=== PATIENT | female | born 1995 | race Caucasian/White ===

== ENCOUNTER 2020-10-02 00:22 | Inpatient (IN) | payer OTHER ==
[~2020-10-02] VITALS: Ht 160 cm; Wt 103.0 kg
--- NOTE | 2020-10-02 00:59 | NUR ---
RAPID COVID TEST DONE PER DR ORDER. COVID TEST COLLECTED FROM BOTH NARES W/O ISSUE. PT TOLERATED WELL.
--- NOTE | 2020-10-02 04:28 | NUR ---
10/02/20 0428 Noelle Lowery 0407 PT ARRIVED IN PACU WIDE AWAKE WITH NO C/O'S. 0410 FBC RN AT BEDSIDE HELPING MOM BREASTFEED BABY. 0420 MOM WITH NO C/O'S.
--- NOTE | 2020-10-03 19:37 | PR ---
[facility] [address] [facility] [place], [place] [address] Signed PP Progress Notes Datetime Report Generated by CPN: 10/03/2020 19:37 SUBJECTIVE: [id number] Pain: Within Normal Limits Nausea/Vomiting: Denies Flatus: Yes Bowel Movement: No Vital Signs: [id number] Vital Signs: Reviewed; Within Normal Limits Cardiovascular: Normal Respiratory: Normal Abdomen/Uterus: Normal Extremities: Normal Incision: Normal IMPRESSION/PLAN/PROCEDURES: [id number] Impression: Normal Progression Plan: Continue Present Management Progress Notes: POD#1 s/p RLTCS after PROM/active labor Progressing well, denies complaints/concerns VSS Ambulating and tolerating regular diet Anticipate DC to home tomorrow Signing Physician: Jaimee Adan DO Copies: ~ *Electronically Signed* 10/03/201936 JAIMEE ADAN DO PATIENT NAME: MARLEEN GALVEZ PROGRESS NOTE DATE OF : [birth year] PHYSICIAN: JAIMEE ADAN DO RPT #: [id number] REPORT IS CONFIDENTIAL AND NOT TO BE RELEASED WITHOUT AUTHORIZATION
--- NOTE | 2020-10-04 07:50 | PR ---
[facility] [address] [facility] [place], [place] [address] Signed PP Progress Notes Datetime Report Generated by CPJ Carlos: 10/04/2020 07:50 SUBJECTIVE: [id number] Pain: Within Normal Limits Nausea/Vomiting: Denies Flatus: Yes Bowel Movement: No Vital Signs: [id number] Vital Signs: Reviewed; Within Normal Limits Cardiovascular: Normal Respiratory: Normal Abdomen/Uterus: Normal Lochia: Normal Extremities: Normal Incision: Normal Progress: Normal IMPRESSION/PLAN/PROCEDURES: [id number] Impression: Normal Progression Plan: Continue Present Management; Discharge Procedures: None Progress Notes: Pt is a 25 yo G2now P2002 POD#2 s/p RLTCS (spontaneous labor) -progressing well -one isolated episode of vertigo yesterday 30 min after percocet, resolved with meclizine and no further reoccurences -lochia light - without difficulty -ambulating, voiding, +flatus, no BM yet Anticipate DC to home today Signing Physician: Jaimee Adan DO Copies: ~ *Electronically Signed* 10/04/20 0750 JAIMEE AADN DO PATIENT NAME: MARLEEN GALVEZ PROGRESS NOTE DATE OF : 96 PHYSICIAN: JAIMEE ADAN #: [id number] REPORT IS CONFIDENTIAL AND NOT TO BE RELEASED WITHOUT AUTHORIZATION
--- NOTE | 2020-10-07 10:12 | OR ---
[facility] [address] [place] [address] Signed DATE OF OPERATION: 10/02/2020 SURGEON: Electronically Signed By: JAIMEE ADAN DO 10/07/20 1012 PATIENT NAME: MARLEEN GALVEZ OPERATIVE REPORT DATE OF : [birth year] REPORT #: [id number] PHYSICIAN: JAIMEE ADAN DO PCP: NO PRIMARY CARE PHYSICIAN REPORT IS CONFIDENTIAL AND NOT TO BE RELEASED WITHOUT AUTHORIZATION [place] [address] [place] [address] Signed Jaimee Adan DO [employer] MANAGER: JAMES Lizarraga DO PROCEDURE: Repeat low-transverse . ESTIMATED BLOOD LOSS: 600 mL. ANESTHESIA: Spinal. COMPLICATIONS: None. 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 Uterine window present, measuring 6 cm superiorly/inferiorly by 7 cm horizontally underneath the bladder with a thick margin of tissue palpable at the inferior margin, behind the bladder. Term viable female weighing 7 pounds 6 ounces delivered in right sacrum anterior position, in complete breech position, normal-appearing tubes and ovaries bilaterally. Left horn present, but notably smaller and less developed than the right horn. INDICATIONS: The patient is a 25-year-old G3, P1-0-1-1, who presented to [facility] after feeling her water break at home at 11:30 p.m. last night. She was previously scheduled for RLTCS on 10/08/20. She is faviola every 2-3 minutes and was consented for repeat . PROCEDURE IN DETAIL: The patient was taken to the operating room where she was given 2 g Ancef and 500 mg of azithromycin and spinal anesthesia was placed. She was prepped and draped in the normal sterile fashion and positioned in supine position with a leftward tilt. Prior Pfannenstiel scar was excised with a scalpel and incision carried down to the underlying fascia with Bovie cautery. The fascia was incised just lateral to midline with scalpel and extended laterally with Valero scissors. The inferior margin was grasped and elevated and the underlying rectus muscle was dissected off with blunt and sharp dissection with Valero scissors. This was released and the superior margin was grasped, elevated, and the Electronically Signed By: JAIMEE ADAN DO 10/07/20 1012 PATIENT NAME: MARLEEN GALVEZ OPERATIVE REPORT DATE OF : [birth year] REPORT #: [id number] PHYSICIAN: JAIMEE ADAN DO PCP: NO PRIMARY CARE PHYSICIAN REPORT IS CONFIDENTIAL AND NOT TO BE RELEASED WITHOUT AUTHORIZATION [address] [address] Signed underlying rectus muscle was dissected off with blunt and sharp dissection with Valero scissors. Peritoneum was easily visualized and entered bluntly and this incision was extended superiorly with Valero scissors and inferiorly with good visualization of the bladder, which was noted to be high. Karri retractor was placed, and at this point, uterine window was easily visible. Due to the location of the window underlying the bladder, incision was made above the vesicouterine junction and hysterotomy was extended laterally with gentle digital traction superiorly and inferiorly. The infant's hips and buttocks were delivered in the RSA position. The remainder of the baby, first right shoulder, then left shoulder, then head were easily delivered via normal breech maneuvers. Cord was immediately doubly clamped and cut and baby was handed off to the waiting nursery team. Cord blood was collected for type and Kirk. Placenta was manually expressed and the uterus was cleared of clots and debris. Hysterotomy was closed in a double-layer closure first with 0 Monocryl in a running locked fashion after securing the right apex and second layer with 0 Monocryl in an imbricating manner. Pelvis was suction irrigated. One area of oozing near midline was noted and [id number] suture with 0 Monocryl was placed with resulting hemostasis. ACell sheet was applied over the hysterotomy. Peritoneum was closed with 2-0 Vicryl in a running fashion. Rectus muscle was inspected for any perforating vessels, which were cauterized with Bovie cautery. The rectus was reapproximated at midline with 0 Vicryl in a simple interrupted fashion x3 sutures. Fascia was closed with 0 Vicryl in a running fashion, starting at the right apex working towards the midline and left apex towards the midline and meeting at the center. Subcutaneous layer was inspected for perforating vessels and these were cauterized with Bovie cautery. This was closed in two layers of closure, one deep with 3-0 vicryl in a running fashion and one more superficially with 3-0 monocryl in a running fashion. Skin was closed with 4-0 monocryl in a subcuticular fashion. Sponge and instrument counts were correct x 2. Sterile dressing was applied. Uterus was Crede'd, with minimal bleeding resulting. Cervix was noted to be dilated to 2 cm at this time. Mother and baby were taken to [facility] room for initial postoperative stabilization. Jaimee Adan DO EMZ/MODL /[id number] Electronically Signed By: JAIMEE ADAN DO 10/07/20 1012 PATIENT NAME: MARLEEN GALVEZ OPERATIVE REPORT DATE OF : [birth year] REPORT #: [id number] PHYSICIAN: JAIMEE ADAN DO PCP: NO PRIMARY CARE PHYSICIAN REPORT IS CONFIDENTIAL AND NOT TO BE RELEASED WITHOUT AUTHORIZATION [facility] [address] [place] [id number] Signed Copies: ~ Electronically Signed By: JAIMEE ADAN DO 10/07/20 1012 PATIENT NAME: MARLEEN GALVEZ OPERATIVE REPORT DATE OF : [birth year] REPORT #: [id number] PHYSICIAN: JAIMEE ADAN DO PCP: NO PRIMARY CARE PHYSICIAN REPORT IS CONFIDENTIAL AND NOT TO BE RELEASED WITHOUT AUTHORIZATION
== END 2020-10-04 12:22 | disposition home or self-care (01) | DRG 788 ==
LOC: FBCO 00:22 → FBC 00:51
PROVIDERS: Obstetrics & Gynecology; ADMIT Obstetrics & Gynecology; ATTEND Obstetrics & Gynecology
PROC: 10D00Z1 Extraction of Products of Conception, Low, Open Approach (ICD-10-PCS; principal; 2020-10-02 02:45)
DX: O34.211 Maternal care for low transverse scar from previous cesarean delivery (principal); N85.8 Other specified noninflammatory disorders of uterus; Z37.0 Single live birth; Z20.822 Contact with and (suspected) exposure to COVID-19; O34.03 Maternal care for unspecified congenital malformation of uterus, third trimester; Q51.3 Bicornate uterus; O32.1XX0 Maternal care for breech presentation, not applicable or unspecified; O42.92 Full-term premature rupture of membranes, unspecified as to length of time between rupture and onset of labor; Z3A.38 38 weeks gestation of pregnancy
CPT/HCPCS: 01961; 85027; C9803; J0456; J0690; J1650; J1885; J2001; J2274; J2405; J2590; J7060; U0003

== ENCOUNTER 2023-05-02 15:17 | Emergency (ER) | payer OTHER ==
[~2023-05-02] VITALS: Ht 152.4 cm; Wt 79.2 kg
[2023-05-02] MEDS ORDERED: WESTAB PLUS TA1 EACH PO (15:31)
[2023-05-02 16:36] LABS: BILIRUBIN, URINE NEGATIVE (negative); BLOOD/HGB, URINE NEGATIVE (Negative); KETONE, URINE NEGATIVE (Negative); LEUK ESTERASE, URINE NEGATIVE (negative); NITRITE, URINE NEGATIVE (negative)
[2023-05-02 17:10] LABS: INFLUENZA B NAA NEGATIVE (NEGATIVE); RESPIRATORY SYNCYTIAL VIR NAA NEGATIVE (NEGATIVE)
[2023-05-02 17:55] LABS: BASOPHILS 0.5 % (0-2); EOSINOPHILS 0.9 % (0-6); HEMATOCRIT 38.8 % (35.0-50.0); HEMOGLOBIN 13.2 g/dL (12.0-18.0); LYMPHOCYTES 20.3 % (24-44); MCH 30.6 (27-36); MONOCYTES 5.2 % (0-12); NEUTROPHILS 73.1 % (39-80); PLATELET COUNT 261 K/uL (140-440); RBC 4.31 M/ul (4.3-5.7); RDW 13.4 (10.5-15.0)
[2023-05-02 18:14] LABS: ALBUMIN 2.9 g/dL (3.4-5.0); ALBUMIN/GLOBULIN RATIO 0.94 (1.1-2.4); ANION GAP 13.9 (7-21); BILIRUBIN, TOTAL 0.1 ng/dL (0.2-1.0); BUN/CREATININE RATIO 19.29 (6.0-28.6); CREATININE, SERUM 0.57 mg/dL (0.55-1.02); POTASSIUM 3.9 mmol/L (3.5-5.1); TSH, 3RD GENERATION 0.453 uIU/mL (0.358-3.740)
[2023-05-02 18:45] VITALS: BP 124/70
== END 2023-05-02 18:45 | disposition home or self-care (01) ==
LOC: ED 15:17
PROVIDERS: Emergency Medicine
DX: O26.891 Other specified pregnancy related conditions, first trimester (principal); R50.9 Fever, unspecified; O99.511 Diseases of the respiratory system complicating pregnancy, first trimester; J02.9 Acute pharyngitis, unspecified; Z3A.09 9 weeks gestation of pregnancy; Z11.52 Encounter for screening for COVID-19; Z79.899 Other long term (current) drug therapy
CPT/HCPCS: 36415; 80053; 81003; 84443; 85025; 86308; 87502; U0002

== ENCOUNTER 2023-05-10 18:43 | Emergency (ER) | payer OTHER ==
[~2023-05-10] VITALS: Ht 152.4 cm; Wt 79.0 kg
[~2023-05-10 18:43] MED LIST: WESTAB PLUS TA1 EACH PO
--- OUTSIDE RECORDS SUMMARY | 2023-05-10 18:51 | XMS ---
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 [facility]rud[facility] VISIT COUNT ([address] [facility] NOTE: Visits indicate total known visits. ED/UCC VISIT TRACKING (12 MO.) 05/10/2023 18:43 [facility] Kim OR TYPE: Emergency COMPLAINT: - VAGINAL BLEEDING/10 WEEKS PREG 05/02/2023 15:18 [facility] Kim [place] TYPE: Emergency COMPLAINT: - FEVER DIAGNOSES: - 9 weeks gestation of - Acute pharyngitis, unspecified - Diseases of the respiratory system complicating , first trimester - Encounter for screening for COVID-19 - Fever, unspecified - Other long-term (current) drug therapy - Other specified related conditions, first trimester INPATIENT VISIT TRACKING (12 MO.) No inpatient visits to display in this time frame [email or web address]
[2023-05-10 20:00] LABS: BASOPHILS 0.8 % (0-2); EOSINOPHILS 0.9 % (0-6); HEMOGLOBIN 14.2 g/dL (12.0-18.0); LYMPHOCYTES 21.2 % (24-44); MCH 30.5 (27-36); MCHC 33.7 g/dl (30-36); MCV 90.4 fl (81-99); MONOCYTES 6.9 % (0-12); NEUTROPHILS 70.2 % (39-80); PLATELET COUNT 280 K/uL (140-440); RBC 4.65 M/ul (4.3-5.7); RDW 13.4 (10.5-15.0)
[2023-05-10 20:12] LABS: BILIRUBIN, URINE NEGATIVE (negative); BLOOD/HGB, URINE NEGATIVE (Negative); KETONE, URINE NEGATIVE (Negative); LEUK ESTERASE, URINE NEGATIVE (negative); NITRITE, URINE NEGATIVE (negative); PH, URINE 5.5 (5-7)
[2023-05-10 20:22] LABS: ABO O; RH POSITIVE
[2023-05-10 20:39] LABS: ANION GAP 14.7 (7-21); BUN/CREATININE RATIO 31.03 (6.0-28.6); CALCIUM 8.9 mg/dL (8.5-10.1); CREATININE, SERUM 0.58 mg/dL (0.55-1.02); POTASSIUM 3.7 mmol/L (3.5-5.1)
[2023-05-10 21:25] VITALS: BP 132/78
== END 2023-05-10 21:21 | disposition home or self-care (01) ==
LOC: ED 18:43
PROVIDERS: Emergency Medicine
DX: O20.9 Hemorrhage in early pregnancy, unspecified (principal); Z3A.11 11 weeks gestation of pregnancy
CPT/HCPCS: 36415; 76801; 76817; 80048; 81003; 84702; 85025; 86900; 86901; 99284-25

== ENCOUNTER 2023-11-05 07:39 | Inpatient (IN) | payer OTHER ==
[~2023-11-05] VITALS: Ht 160 cm; Wt 94.8 kg
[2023-11-15] MEDS ORDERED: LACTATED RINGER'S 2,000 ML IV PRN (05:30)
[2023-11-15] MEDS ORDERED: LACTATED RINGER'S 1,000 ML IV PRN (05:30)
[2023-11-15] MEDS ORDERED: LACTATED RINGER'S 1,000 ML IV SCH ×2 (05:30→08:37)
[2023-11-15 05:53] LABS: HEMATOCRIT 41.3 % (35.0-50.0); HEMOGLOBIN 14.1 g/dL (12.0-18.0); MCH 31.2 (27-36); MCHC 34.1 g/dl (30-36); MCV 91.4 fl (81-99); RBC 4.52 M/ul (4.3-5.7)
[2023-11-15] MEDS ORDERED: SOD+POT BICARB/CITRIC ACID 2 EA TABLET.EFF PO ONE (06:30)
[2023-11-15 06:33] LABS: ABO O; ANTIBODY SCREEN NEGATIVE; RH POSITIVE
[2023-11-15] MEDS ORDERED: ondansetron HCL 4 MG/2 ML VIAL ONE (06:51)
[2023-11-15] MEDS ORDERED: SODIUM CHLORIDE 0.9% 60 ML IV ONE (06:51)
[2023-11-15] MEDS ORDERED: BUPIVACAINE 0.75% IN DEXTROSE 2 ML AMP ONE (06:51)
[2023-11-15] MEDS ORDERED: dexmedeTOMIDine HCl 200 MCG/2 ML VIAL ONE (06:51)
[2023-11-15] MEDS ORDERED: OXYTOCIN 10 UNITS/ML VIAL ONE (06:51)
[2023-11-15] MEDS ORDERED: LIDOCAINE HCL 2% 5 ML SDV ONE (06:51)
[2023-11-15] MEDS ORDERED: Ropivacaine HCl 0.5% 30 ML VIAL ONE (06:51)
[2023-11-15] MEDS ORDERED: DEXAMETHASONE SOD PHOS 4 MG/ML VIAL ONE (06:51)
[2023-11-15] MEDS ORDERED: PHENYLEPHRINE HCL 10 MG/ML VIAL ONE (06:51)
[2023-11-15] MEDS ORDERED: ePHEDrine sulfate 50 MG/ML AMP ONE (06:52)
[2023-11-15] MEDS ORDERED: fentaNYL citrate 100 MCG/2 ML VIAL ONE (06:56)
[2023-11-15] MEDS ORDERED: CEFAZOLIN SODIUM 2 GM/20 ML SYR IV SCH (07:00)
[2023-11-15] MEDS ORDERED: MORPHINE SULFATE 1 MG/ML VIAL ONE (07:05)
[2023-11-15] MEDS ORDERED: fentaNYL citrate 50 MCG/ML SDV IV PRN (07:15)
[2023-11-15] MEDS ORDERED: IBLOOD GLUCOSE TEST STRIP 1 EA TEST VI PRN (07:15)
[2023-11-15] MEDS ORDERED: diphenhydrAMINE HCL 50 MG/ML VIAL IV PRN (07:15)
[2023-11-15] MEDS ORDERED: ondansetron HCL 4 MG/2 ML VIAL IV PRN ×2 (07:15→08:45)
[2023-11-15] MEDS ORDERED: NALOXONE HCL 0.4 MG SYR IV PRN ×2 (07:15→10:30)
[2023-11-15] MEDS ORDERED: KETOROLAC TROMETHAMINE 30 MG/ML VIAL ONE (08:08)
[2023-11-15] MEDS ORDERED: SODIUM CHLORIDE 0.9% 20 ML IV ONE (08:10)
[2023-11-15 08:14] LABS: AMPHETAMINES, URINE NEGATIVE (NEGATIVE); BARBITURATES, URINE NEGATIVE (NEGATIVE); BENZODIAZEPINE, URINE NEGATIVE (NEGATIVE); BUPRENORPHINE, URINE NEGATIVE (NEGATIVE); CANNABINOID, URINE NEGATIVE (NEGATIVE); COCAINE, URINE NEGATIVE (NEGATIVE); ECSTASY, URINE NEGATIVE (NEGATIVE); FENTANYL, URINE NEGATIVE (NEGATIVE); METHADONE, URINE NEGATIVE (NEGATIVE); OPIATES, URINE NEGATIVE (NEGATIVE); OXYCODONE, URINE NEGATIVE (NEGATIVE); PHENCYCLIDINE, URINE NEGATIVE (NEGATIVE)
[2023-11-15] MEDS ORDERED: ACETAMINOPHEN 1,000 MG/100 ML VIAL ONE (08:17)
[2023-11-15] MEDS ORDERED: diphenhydrAMINE HCL 50 MG/ML VIAL ONE (08:39)
[2023-11-15] MEDS ORDERED: OXYTOCIN/0.9 % SODIUM CHLORIDE 500 ML IV SCH (08:45)
[2023-11-15] MEDS ORDERED: OXYCODONE HCL 5 MG TAB PO PRN (08:45)
[2023-11-15] MEDS ORDERED: HYDROCODONE/ACETA 5/325 TAB PO PRN (08:45)
[2023-11-15] MEDS ORDERED: PROMETHAZINE HCL 25 MG SUPP PR PRN (08:45)
[2023-11-15] MEDS ORDERED: PROCHLORPERAZINE EDISYLATE 10 MG/2 ML VIAL IV PRN (08:45)
[2023-11-15] MEDS ORDERED: OXYCODONE/APAP 5/325 TAB PO PRN (08:45)
[2023-11-15] MEDS ORDERED: METOCLOPRAMIDE HCL 10 MG/2 ML SDV IV PRN (08:45)
[2023-11-15] MEDS ORDERED: PROMETHAZINE HCL 25 MG TAB PO PRN (08:45)
[2023-11-15] MEDS ORDERED: bisacodyL 10 MG SUPP PR PRN (08:45)
[2023-11-15] MEDS ORDERED: SENNOSIDES/DOCUSATE 1 EA TAB PO SCH (09:00)
--- NOTE | 2023-11-15 09:00 | NUR ---
11/15/23 0900 Salome Garay 0841: PT ARRIVES IN ROOM 105 FROM OR FOR RECOVERY. AWAKE AND ALERT ON ARRIVAL. VSS, RESP EVEN AND UNLABORED. FUNDUS FIRM, BLEEDING LIGHT. NSR. DENIES PAIN AND NAUSEA. TAP BLOCKS AND SPINAL IN PLACE 0843: CONTS TO DENY PAIN OR NAUSEA. AGRCIA CATH DRAINING CLEAR YELLOW URINE AT THE BEDSIDE. IV PREVIOUSLY STARTED BY FBC RN. 20G IN LEFT HAND. FLUSHES WITHOUT RESISTANCE. INFUSING ORDERED 0845: VSS, RESP EVEN AND UNLABORED. FUNDUS FIRM, BLEEDING LIGHT 0900: SKIN TO SKIN WITH . ATTEMPTS TO BF WITH FBC RN ASSIST
[2023-11-15] MEDS ORDERED: KETOROLAC TROMETHAMINE 30 MG/ML VIAL IV PRN (10:30)
[2023-11-15] MEDS ORDERED: MORPHINE SULFATE 4 MG/ML VIAL IV PRN (10:30)
[2023-11-15] MEDS ORDERED: HYDROmorphone HCL 1 MG/ML SYR IV PRN (10:30)
[2023-11-15 10:45] VITALS: BP 118/64
[2023-11-15] MEDS ORDERED: SIMETHICONE 125 MG TABLET CHEWABLE PO SCH (11:00)
[2023-11-15] MEDS ORDERED: KETOROLAC TROMETHAMINE 30 MG/ML VIAL IV SCH (14:00)
[2023-11-15] MEDS ORDERED: ENOXAPARIN SODIUM 40 MG/0.4 ML SYR SUB-Q SCH (16:00)
[2023-11-16] MEDS ORDERED: IBUPROFEN 600 MG TAB PO SCH ×2 (02:00→14:00)
[2023-11-16 05:28] LABS: HEMATOCRIT 30.5 % (35.0-50.0); HEMOGLOBIN 10.4 g/dL (12.0-18.0); MCH 31.3 (27-36); MCHC 34.2 g/dl (30-36); MCV 91.4 fl (81-99); RBC 3.34 M/ul (4.3-5.7); RDW 12.8 (10.5-15.0)
[2023-11-16] MEDS ORDERED: SOD+POT BICARB/CITRIC ACID 2 EA TABLET.EFF PO SCH (07:00)
[2023-11-16] MEDS ORDERED: CEFAZOLIN SODIUM 2 GM/20 ML SYR IV SCH (07:00)
--- NOTE | 2023-11-16 08:37 | PR ---
[facility] [address] [facility] [place], [place] [address] Signed PP Progress Notes Datetime Report Generated by CPN: 11/16/2023 08:37 SUBJECTIVE: [id number] Pain: Within Normal Limits Flatus: Yes Bowel Movement: No Vital Signs: [id number] Vital Signs: Reviewed; Within Normal Limits EXAM: Ongoing Cardiovascular: Normal Respiratory: Normal Abdomen/Uterus: Normal Lochia: Normal Vulva/Perineum: Not Done Breasts: Not Done CVA Tenderness: Normal Extremities: Normal Incision: Normal Progress: Normal Exam Comments: Fundus firm U-2 nontender. Incision bandaged IMPRESSION/PLAN/PROCEDURES: [id number] Impression: Normal Progression Plan: Continue Present Management Progress Notes: Pt seen and examined. Doing well. Ambulating, voiding, and tolerating full diet. Pain and lochia minimal. well. No fevers/chils or other concerns. Very happy with perioperative experience. Anticipate d/c home tomorrow vs Signing Physician: Dinesh Lizarraga DO Copies: ~ *Electronically Signed* 11/16/23 0837 DINESH LIZARRAGA (JAMES) DO PATIENT NAME: MARLEEN GALVEZ PROGRESS NOTE DATE OF : 96 PHYSICIAN: DINESH LIZARRAGA) DO RPT #: [id number] REPORT IS CONFIDENTIAL AND NOT TO BE RELEASED WITHOUT AUTHORIZATION
--- NOTE | 2023-11-16 19:04 | OR ---
[facility] [address] [place], [place] [address] Signed DATE OF OPERATION: 11/15/2023 SURGEON: Dinesh Lizarraga DO PREOPERATIVE DIAGNOSES: 1. Intrauterine at 37 weeks gestation. 2. History of prior section with large uterine window. POSTOPERATIVE DIAGNOSES: 1. Intrauterine at 37 weeks gestation. 2. History of prior section with large uterine window. PROCEDURES PERFORMED: Repeat low transverse section. DERMATOLOGY NURSE: Yesica Quinones MD ANESTHESIA: Spinal with postoperative TAP blocks. ESTIMATED BLOOD LOSS: 600 mL. SPECIMENS: Cord blood for routine analysis. DRAINS: Gomes to gravity. COMPLICATIONS: None. FINDINGS: Delivery of viable male , 7 pounds 12 ounces with Apgars of 8 and 8. Baby was born in the OP position with nuchal cord x1 and clear amniotic fluid. The lower uterine segment was quite thin, but no uterine window was appreciated. Otherwise normal tubes and ovaries. There is a septum of the upper approximately 20% of the uterine cavity consistent with arcuate or partial bicornuate uterus. Electronically Signed By: DINESH LIZARRAGA DO (JD) 11/16/23 190 PATIENT NAME: MARLEEN BROWNE OPERATIVE REPORT DATE OF : [birth year] REPORT #: [id number] PHYSICIAN: DINESH LIZARRAGA DO (JD) PCP: NO PRIMARY CARE PHYSICIAN REPORT IS CONFIDENTIAL AND NOT TO BE RELEASED WITHOUT AUTHORIZATION [facility] [address] [place], [place] [address] Signed INDICATIONS: Ms. Browne is a very pleasant 28-year-old G4, P2, with intrauterine at 37 weeks one day gestation who presents for scheduled repeat low transverse section. [facility] recommended delivery at 37 weeks due to history of uterine window. The patient declines salpingectomy. Risks, benefits, and alternatives were discussed in detail with the patient. The patient understands and wished to proceed with procedure. TECHNIQUE: The patient was taken to the OR. A time-out was performed to confirm correct patient and correct procedure. Spinal anesthesia was adequately established. The patient was prepped and draped in the supine position with bump on the right hip. ICPs were on running. A Gomes catheter was inserted. The patient received Ancef 2 g preoperatively and no heparin was indicated. Once spinal anesthetic was noted to be adequate, a Pfannenstiel skin incision was made through the prior scar and carried down to the fascia. Fascia was nicked in the midline. Fascial incision was extended bilaterally using curved Valero scissors. The fascia was grasped with Sharita's, elevated, and the underlying rectus dissected off bluntly and sharply. The rectus was divided in the midline and the peritoneum was entered sharply and was dissected cephalad caudad using blunt and sharp dissection. Somewhat high-riding bladder was noted and this was brought down by creating a bladder flap after the insertion of the Karri self retractor. The lower uterine segment was noted to be thin, but no obvious window was appreciated. Hysterotomy was performed using surgical scalpel and clear amniotic fluid was noted. Hysterotomy was extended bilaterally using blunt dissection and the was delivered in the OP position with the assistance of fundal pressure. Nuchal cord x1 was noted loose and was reduced without difficulty. was vigorous and cried upon delivery. Cord was doubly clamped and cut and the handed to the waiting pediatric team for further care. Cord blood was obtained for routine analysis. The placenta was expressed, intact with a centrally inserted three-vessel cord. The uterus was then cleared for any remaining products of conception or clot and the apical septum was palpated. The hysterotomy was repaired in two layers using 0 Vicryl. The 1st being a running locked layer and the 2nd being an imbricating stitch in a vertical manner. Just inferior to the incision, particularly on the patient's right side, the myometrium was noted to be very thin and full length imbrication was unable to be performed. The pelvis was irrigated and made hemostatic with judicious use of Bovie electrocautery. The peritoneum was then reapproximated using 2-0 Vicryl in a running nonlocked manner after removal of the Karri self retractor. Rectus was made hemostatic with judicious use of Bovie electrocautery and it was plicated loosely in the midline with three interrupted sutures of 0 Vicryl. The fascia was reapproximated using 0 Vicryl in a running nonlocked manner. Subcu was made hemostatic with Bovie electrocautery and was irrigated and hemostasis confirmed. Subcu was reapproximated using 3-0 Vicryl in a running nonlocked manner and skin was reapproximated using surgical ephraim. The uterus was Crede'd for scant amount of blood and the patient remained in the OR for Electronically Signed By: DINESH KNUTSON) DO GARTH 11/16/23 1904 PATIENT NAME: MARLEEN BROWNE OPERATIVE REPORT DATE OF : [birth year] REPORT #: [id number] PHYSICIAN: DINESH LIZARRAGA DO (JD) PCP: NO PRIMARY CARE PHYSICIAN REPORT IS CONFIDENTIAL AND NOT TO BE RELEASED WITHOUT AUTHORIZATION [address] [address] Signed postoperative TAP blocks. Sponge, needle, and instrument count were correct x2 at the end of procedure. Dr. Quinones was present and participated in all portions of the procedure. DO JIMENEZ Lund/CORINNE /[id number] Copies: ~ Electronically Signed By: DINESH LIZARRAGA DO (JD) 11/16/23 1904 PATIENT NAME: MARLEEN BROWNE OPERATIVE REPORT DATE OF : [birth year] REPORT #: [id number] PHYSICIAN: DINESH LIZARRAGA DO (JD) PCP: NO PRIMARY CARE PHYSICIAN REPORT IS CONFIDENTIAL AND NOT TO BE RELEASED WITHOUT AUTHORIZATION
--- NOTE | 2023-11-17 08:39 | PR ---
[facility] [address] [place], [place] [address] Signed PP Progress Notes Datetime Report Generated by CPN: 11/17/2023 08:38 SUBJECTIVE: [id number] Pain: Within Normal Limits Nausea/Vomiting: Denies Flatus: Yes Bowel Movement: No Vital Signs: [id number] Vital Signs: Reviewed; Within Normal Limits EXAM: Met Cardiovascular: Normal Respiratory: Normal Abdomen/Uterus: Normal Lochia: Normal Vulva/Perineum: Not Done Breasts: Not Done CVA Tenderness: Normal Extremities: Normal Incision: Normal Progress: Normal Exam Comments: Fundus firm U-2 nontender. Incision healing very well w/ ephraim in place IMPRESSION/PLAN/PROCEDURES: [id number] Impression: Normal Progression Plan: Discharge Progress Notes: Pt seen and examined. Doing well. Ambulating, voiding, and tolerating full diet. Pain and lochia minimal. well. No fevers/chills or other concerns. Desires d/c home today. Incision healing well. Reviewed d/c instructions / medications. Plan staple removal 11/18 in office. eRxs sent to pharmacy. Pt planning nexplanon for pp contraception. Again reviewed intraoperative findings of no uterine window however very thin lower uterine segment Signing Physician: Dinesh Lizarraga DO Copies: ~ *Electronically Signed* 11/17/23 0838 DINESH LIZARRAGA (JAMES) DO PATIENT NAME: MARLEEN GALVEZ PROGRESS NOTE DATE OF : [birth year] PHYSICIAN: DINESH LIZARRAGA (JD) DO RPT #: [id number] REPORT IS CONFIDENTIAL AND NOT TO BE RELEASED WITHOUT AUTHORIZATION
[2023-11-17] MEDS ORDERED: MECLIZINE HCL 12.5 MG TAB PO ONE (11:45)
[2023-11-17] MEDS ORDERED: ONDANSETRON 4 MG TAB ODT SL ONE (11:45)
== END 2023-11-17 16:45 | disposition home or self-care (01) | DRG 788 ==
LOC: FBC 11-15 05:04
PROVIDERS: ADMIT Obstetrics & Gynecology; ATTEND Obstetrics & Gynecology
PROC: 10D00Z1 Extraction of Products of Conception, Low, Open Approach (ICD-10-PCS; principal; 2023-11-15)
DX: O34.211 Maternal care for low transverse scar from previous cesarean delivery (principal); Z3A.37 37 weeks gestation of pregnancy; Z37.0 Single live birth; O69.81X0 Labor and delivery complicated by cord around neck, without compression, not applicable or unspecified
CPT/HCPCS: 01961; 36415; 76942; 80307; 85027; 86850; 86900; 86901; A9270; J0131; J0690; J1100; J1200; J1650; J1885; J2001; J2274; J2371; J2405; J2590; J2795; J3010; J7121